=== PATIENT | female | born 1945 | race Caucasian/White ===

== ENCOUNTER 2022-12-15 23:05 | Emergency (ER) | payer OTHER, MEDICARE ==
[2022-12-15 23:18] VITALS: TEMP 97.8; BMI 34.0
[2022-12-16] MEDS ORDERED: FAMOTIDINE 20 MG/50 ML IVPB 20 MG/50 ML MG IVPB ONE ×2 (00:14→00:19)
[2022-12-16 00:43] LABS: HEMATOCRIT 40.5 % (32.4-45.2); HEMOGLOBIN 13.6 GM/dL (10.7-15.3); MCH 30.1 pg (25.7-33.7); MCHC 33.5 g/dl (32.0-36.0); MEAN CELL VOLUME 89.9 fl (80-96); MEAN PLT VOLUME 8.9 fl (7.5-11.1); PLATELET COUNT 284 10^3/uL (134-434); WHITE BLOOD COUNT 9.4 K/mm3 (4.0-10.0)
[2022-12-16 01:12] LABS: CHLORIDE 107 mmol/L (98-107); POTASSIUM 4.5 mmol/L (3.5-5.1); SODIUM 141 mmol/L (136-145)
[2022-12-16 01:13] LABS: CALCIUM 8.9 mg/dL (8.5-10.1); GLUCOSE,RANDOM 154 mg/dL (74-106)
[2022-12-16 01:15] LABS: ALBUMIN 3.5 g/dl (3.4-5.0); ANION GAP 8 MMOL/L (8-16); BLOOD UREA NITROGEN 24.6 mg/dL (7-18); CO2 25 mmol/L (21-32)
[2022-12-16 01:16] LABS: SGPT/ALT 18 U/L (13-61)
[2022-12-16 01:17] LABS: CREATININE 1.2 mg/dL (0.55-1.3); PHOSPHOROUS 2.7 mg/dL (2.5-4.9); SGOT/AST 15 U/L (15-37)
[2022-12-16 01:18] LABS: BILIRUBIN,TOTAL 0.3 mg/dL (0.2-1); TOT PROT 7.2 g/dl (6.4-8.2)
[2022-12-16 01:19] LABS: ALK PHOS 84 U/L (45-117)
[2022-12-16] MEDS ORDERED: HEPARIN NA (PORCINE) 5,000 UNITS/ML 1ML VIAL IVPUSH ONE (01:59)
[2022-12-16] MEDS ORDERED: HEPARIN NA (PORCINE) 5,000 UNITS/ML 1ML VIAL ONE (02:09)
[2022-12-16] MEDS ORDERED: HEPARIN INFUSION - 25,000 UNITS/500 ML INFUS.BAG IVPB ONE (02:10)
[2022-12-16] MEDS ORDERED: HEPARIN NA (PORCINE) 5,000 UNITS/ML 1ML VIAL IVPUSH STA (02:24)
[2022-12-16 02:39] VITALS: BP 124/75; PULSE 76; RESP 18
== END 2022-12-16 02:53 | disposition short-term general hospital (02) ==
LOC: FER 23:05
PROC: 3E033GC Introduction of Other Therapeutic Substance into Peripheral Vein, Percutaneous Approach (ICD-10-PCS; principal; 2022-12-16)
DX: R07.89 Other chest pain (principal); R06.02 Shortness of breath; Z20.822 Contact with and (suspected) exposure to COVID-19
CPT/HCPCS: 36415; 71045-TC-FY; 80053; 82550; 83735; 84100; 84484; 85027; 87635; 93005; 99285-25